=== PATIENT | female | born 1970 | race Hispanic/Latino ===

== ENCOUNTER → 2019-09-09 | Outpatient (CLI) | payer OTHER | END | disposition home or self-care (01) | LOC: OIH 09:18 | PROVIDERS: ATTEND Family Medicine | DX: M54.5 Low back pain (principal); M81.0 Age-related osteoporosis without current pathological fracture | CPT/HCPCS: 72100 ==

== ENCOUNTER → 2022-07-10 | Outpatient (CLI) | payer MEDICARE | END | disposition home or self-care (01) | LOC: SHCH 12:53 | PROVIDERS: ATTEND Internal Medicine Cardiovascular Disease | DX: I11.0 Hypertensive heart disease with heart failure (principal); I50.1 Left ventricular failure, unspecified | CPT/HCPCS: 93306 ==

== ENCOUNTER → 2022-08-17 | Outpatient (CLI) | payer MEDICARE ==
[2022-08-17 14:02] LABS: CREATININE 0.9 mg/dL (0.5-1.5); POTASSIUM 4.1 mmol/L (3.5-5.1)
== END | disposition home or self-care (01) ==
LOC: LAB 10:41
PROVIDERS: ATTEND Internal Medicine Cardiovascular Disease
DX: I11.0 Hypertensive heart disease with heart failure (principal)
CPT/HCPCS: 36415; 80048; 83880